=== PATIENT | male | born 1990 | race Caucasian/White ===

== ENCOUNTER 2016-07-31 09:59 | Outpatient (CLI) ==
--- NOTE | 2016-07-31 11:15 | CT ---
EXAM: CT abdomen pelvis without contrast HISTORY: Bloody stool COMPARISON: None TECHNIQUE: CT abdomen pelvis performed without intravenous contrast. Coronal and sagittal reformat ward images obtained. FINDINGS: Minimal dependent density right lung base. No free air. No acute abnormalities of the marcial rani. Heart normal in size. Evaluation organ parenchyma limited without contrast. Liver appears nor mal. Gallbladder appears normal. Pancreas appears normal. Spleen mildly enlarged. Adrenals appea r normal. Aorta normal in caliber. No hydronephrosis or nephrolithiasis. No calculi visualized in normal course of the ureters. Bladder only mildly distended and poorly evaluated, grossly unremark able. Prostate normal in size. Small fat-containing umbilical hernia. Stomach appears normal. No dilated loops small bowel. Appendix appears normal. Colonic diverticulosis. No inflammatory stra nding identified in the abdomen pelvis. IMPRESSION: 1. No acute inflammatory process identified in the abdomen or pelvis. 2. Mild colonic diverticulosis. 3. Mild splenomegaly.
== END 2016-07-31 10:00 | disposition home or self-care (01) ==
LOC: RAD 09:59
PROVIDERS: ATTEND Nurse Practitioner Family
DX: K92.1 Melena (principal); R15.9 Full incontinence of feces; K62.5 Hemorrhage of anus and rectum

== ENCOUNTER 2016-09-03 16:15 | Outpatient (CLI) ==
--- NOTE | 2016-09-03 16:54 | DI ---
Exam: Four x-rays of the left knee. Comparison: None available. Reason for exam: Chronic pain. FINDINGS: No acute fracture or dislocation. The joint spaces are well maintained. Prominent subcu taneous vessels are seen throughout the soft tissues. No unexplained calcific soft tissue densities or loose bodies. Impression: No acute fracture or dislocation in the left knee
--- NOTE | 2016-09-03 16:54 | DI ---
EXAM: Radiographs, right knee HISTORY: Chronic right knee pain. COMPARISON: None available. TECHNIQUE: Four views. FINDINGS: Bone mineralization is normal. There is no fracture or dislocation. The joint spaces ar e maintained. No focal soft tissue abnormality is seen. IMPRESSION: No abnormality of the right knee.
--- NOTE | 2016-09-03 16:55 | DI ---
EXAM: Radiographs, left foot HISTORY: Lateral fifth metatarsal pain. COMPARISON: None available. TECHNIQUE: Three views. FINDINGS: Bone mineralization is normal. There is no fracture or dislocation. The joint spaces ar e maintained. No focal soft tissue abnormality is seen. IMPRESSION: No abnormality of the left foot.
== END 2016-09-03 16:16 | disposition home or self-care (01) ==
LOC: RAD 16:15
PROVIDERS: ATTEND Nurse Practitioner Family
DX: M25.562 Pain in left knee (principal); M25.561 Pain in right knee; M79.672 Pain in left foot

== ENCOUNTER 2017-02-08 19:19 | Emergency (ER) ==
[2017-02-08] MEDS ORDERED: DECADRON 4 MG/ML SDV IM STA (19:25)
[2017-02-08] MEDS ORDERED: BENADRYL IM STA (19:25)
[2017-02-08 19:32] VITALS: BP 136/97; TEMP 99.1; BMI 50.2
--- NOTE | 2017-02-08 19:44 | ED.PDOC ---
General ED Provider: Dr. BRIAN ROJAS-ER Chief Complaint: Allergic Reaction Stated Complaint: mica been handling some insulation and now myhands are red, itchy and swollen Time Seen by Physician: 19:30 Mode of Arrival: Walk-In Information Source: Patient Exam Limitations: No limitations Primary Care Provider: TORRES OGLESBY Nursing and Triage Documentation Reviewed and Agree: Yes Skin Complaint Exam - Skin/Soft Tissue Complaint/Exam Onset/Duration: several min ago Symptoms Are: Still present Initial Severity: Mild Current Severity: Mild Location: hands Character: Reports: Redness, Swelling, Raised. Denies: Painful Aggravating: Reports: None Alleviating: Reports: None Associated Signs and Symptoms: Reports: Itching. Denies: Fever, Chills, Drainage, Bruising, Tenderness, Red streaks, Joint swelling Related Surgical History: Reports: None Recent Exposure to Others w/Similar Symptoms: No Skin Findings: Present: Erythema Joint Tenderness Present: No Differential Diagnoses: Other Review of Systems - Review Of Systems Constitutional: Reports: No symptoms Eyes: Reports: No symptoms Ears, Nose, Mouth, Throat: Reports: No symptoms Respiratory: Reports: No symptoms Cardiac: Reports: No symptoms GI: Reports: No symptoms : Reports: No symptoms Musculoskeletal: Reports: No symptoms Skin: Reports: Rash Neurological: Reports: No symptoms Endocrine: Reports: No symptoms Hematologic/Lymphatic: Reports: No symptoms All Other Systems: Reviewed and Negative Past Medical History - Past Medical History Previously Healthy: No Endocrine: Reports: Unknown Cardiovascular: Reports: Unknown Respiratory: Reports: Unknown Hematological: Reports: Unknown Gastrointestinal: Reports: Unknown Genitourinary: Reports: Unknown Neuro/Psych: Reports: Unknown Musculoskeletal: Reports: Unknown Cancer: Reports: Unknown - Surgical History General Surgical History: Reports: Unknown - Family History Family History: Reports: Unknown - Social History Smoking Status: Current some day smoker, Light tobacco smoker Hx Substance Use: No Alcohol Screening: Occasionally - Immunizations Tetanus Shot up to Date: (UNKNOWN) Physical Exam - Physical Exam Appearance: Well-appearing, No pain distress, Well-nourished Eyes: MARILEE, EOMI, Conjunctiva clear ENT: Ears normal, Nose normal, Oropharynx normal Neck: Supple Respiratory: Airway patent, Breath sounds clear, Breath sounds equal, Respirations nonlabored Cardiovascular: RRR, Pulses normal, No rub, No murmur GI/: Soft, Nontender, No masses, Bowel sounds normal, No Organomegaly Musculoskeletal: Normal strength, ROM intact, No edema, No calf tenderness Skin: Warm, Dry, Normal color Neurological: Sensation intact, Motor intact, Reflexes intact, Cranial nerves intact, Alert, Oriented Psychiatric: Affect appropriate, Mood appropriate Re-Evaluation - Re-Evaluation Time of Re-Evaluation: 19:50 Status: Improved Vital Signs Stable: Yes Pain Level: 0 Appearance: NAD Lungs: Clear Skin: Warm and Dry Neuro: Alert and Oriented X3 CV: RRR Critical Care Note - Critical Care Note Total Time (mins): 0 Course - Course Orders, Labs, Meds: Orders Category Date Time Status Dexamethasone 4 mg/ml Inj [Decadron 4 mg/ml Sdv] MEDS 02/08/17 19:25 Discontinued 8 mg IM ONCE STA Diphenhydramine Inj [Benadryl] MEDS 02/08/17 19:25 Discontinued 50 mg IM ONCE STA Medications Discontinued Medications Generic Name Dose Route Start Last Admin Trade Name Freq PRN Reason Stop Dose Admin Dexamethasone Sodium Phosphate 8 mg 02/08/17 19:25 02/08/17 19:39 Decadron 4 Mg/Ml Sdv IM 02/08/17 19:26 8 mg ONCE STA Administration Diphenhydramine HCl 50 mg 02/08/17 19:25 02/08/17 19:40 Benadryl IM 02/08/17 19:26 50 mg ONCE STA Administration Vital Signs: Temp Pulse Resp BP Pulse Ox 02/08/17 19:20 99.1 F 110 H 18 136/97 H 96 Departure - Departure Time of Disposition: 19:50 Disposition: HOME SELF-CARE Discharge Problem: Allergic state Instructions: Urticaria (ED) Condition: Good Pt referred to PMD for follow-up: Yes Additional Instructions: prednisone 30mg x 2 days then 20mg x 2 days then 10mg x 2 days--taco 180mg # 30--zantac 150mg bid #30--f/u wtih pcp Allergies/Adverse Reactions: Allergies No Known Allergies Allergy (Verified 02/08/17 19:29) Disposition Discussed With: Patient
== END 2017-02-08 20:15 | disposition home or self-care (01) ==
LOC: ED 19:19
DX: L23.89 Allergic contact dermatitis due to other agents (principal); F17.210 Nicotine dependence, cigarettes, uncomplicated
CPT/HCPCS: 96372; 99282

== ENCOUNTER 2017-03-12 12:05 | Outpatient (CLI) | END 2017-03-12 12:06 | disposition home or self-care (01) | LOC: LAB 12:05 | PROVIDERS: ATTEND Nurse Practitioner Family | DX: K62.5 Hemorrhage of anus and rectum (principal); R11.0 Nausea; R15.9 Full incontinence of feces; E66.9 Obesity, unspecified | CPT/HCPCS: 36415; 80053; 80061; 84443; 85025 ==

== ENCOUNTER 2017-04-04 16:19 | Outpatient (CLI) | END 2017-04-04 16:20 | disposition home or self-care (01) | LOC: LAB 16:19 | PROVIDERS: ATTEND Nurse Practitioner Family | DX: R05 Cough (principal); R50.9 Fever, unspecified; J02.9 Acute pharyngitis, unspecified | CPT/HCPCS: 87502; 87651 ==

== ENCOUNTER 2017-06-23 10:02 | Outpatient (CLI) ==
--- NOTE | 2017-06-23 11:11 | DI ---
EXAM: Two views of the chest. History: Asthma Comparison: Chest radiograph 12/22/2007 Findings: Heart size is within normal limits. No focal consolidation. No appreciable pleural fluid and no pneumothorax. No acute osseous abnormalities. Impression: No acute cardiopulmonary process
== END 2017-06-23 10:03 | disposition home or self-care (01) ==
LOC: RAD 10:02
PROVIDERS: ATTEND Emergency Medicine
DX: J45.909 Unspecified asthma, uncomplicated (principal); J06.9 Acute upper respiratory infection, unspecified

== ENCOUNTER 2018-06-08 12:00 | Outpatient (CLI) | END 2018-06-08 12:01 | disposition home or self-care (01) | LOC: RHC-LAB 12:00 → FCC-LAB 12:01 | PROVIDERS: ATTEND Nurse Practitioner Family | DX: J45.998 Other asthma (principal); Z00.00 Encounter for general adult medical examination without abnormal findings | CPT/HCPCS: 36415; 80053; 85025 ==